=== PATIENT | female | born 1960 | race Caucasian/White ===

== ENCOUNTER 2019-02-02 13:32 | Emergency (ER) | payer OTHER ==
[~2019-02-02] VITALS: Ht 157.5 cm; Wt 58.1 kg
[2019-02-02 13:35] VITALS: Ht 157.5 cm; Wt 58.1 kg
== END 2019-02-02 14:45 | disposition home or self-care (01) ==
LOC: E/R 13:32 → FTE 14:45
DX: S89.92XA Unspecified injury of left lower leg, initial encounter (principal); W18.30XA Fall on same level, unspecified, initial encounter; Y92.9 Unspecified place or not applicable
CPT/HCPCS: 73562